=== PATIENT | female | born 1950 | race Two or more races ===

== ENCOUNTER 2020-02-18 10:10 | Emergency (ER) | payer OTHER ==
[~2020-02-18] VITALS: Ht 170.2 cm; Wt 83.8 kg
[2020-02-18] MEDS ORDERED: ASPI-986 PO (10:19)
[2020-02-18 10:30] LABS: BASOPHILS % 0.6 % (0.0-2.0); HEMATOCRIT. 39.8 % (36.0-48.0); HEMOGLOBIN. 13.4 g/dL (12.0-16.0); LYMPHOCYTES % 36.6 % (20.0-50.0); MEAN CORPUSCULAR VOLUME 92.1 fL (81.0-99.0); MEAN PLATELET VOLUME 8.4 fl (7.4-10.4); MONOCYTES % 8.2 % (2.0-8.0); NEUTROPHILS % 52.6 % (40.0-76.0); PLATELET 232 x1000/uL (130-400); RED BLOOD CELL COUNT 4.32 mill/uL (4.2-5.4); RED CELL DISTRIBUTION WIDTH 13.2 % (11.6-14.6)
[2020-02-18 10:38] LABS: CHLORIDE 106 mEq/L (98-107)
[2020-02-18 10:41] LABS: ETHANOL BLOOD < 10 mg/dL
[2020-02-18 10:44] LABS: LDL CHOLESTEROL 73 mg/dL (5-100)
[2020-02-18 10:45] LABS: PROTHROMBIN TIME 10.8 sec (9.6-11.0)
[2020-02-18 11:20] LABS: CLARITY URINE CLEAR (CLEAR); COLOR URINE YELLOW (YELLOW); KETONES URINE NEGATIVE (NEGATIVE); LEUKOCYTE ESTERASE URINE 1+ (NEGATIVE); NITRITE URINE NEGATIVE (NEGATIVE); OCCULT BLOOD URINE NEGATIVE (NEGATIVE); PROTEIN URINE 1+ (NEGATIVE); SPECIFIC GRAVITY URINE 1.014 (1.005-1.030)
[2020-02-18] MEDS ORDERED: POTASSIUM CHLORIDE 20MEQ TABLET SR PO ONE (13:45)
[2020-02-18] MEDS ORDERED: ASPIRIN 325MG EC TABLET PO ONE (13:45)
[2020-02-18 13:50] VITALS: BP 135/86
[2020-02-19 10:48] LABS: *AMPHETAMINES SCREEN URINE NEGATIVE (NEGATIVE); *BARBITURATES SCREEN URINE NEGATIVE (NEGATIVE); *BENZODIAZEPINES SCREEN URINE NEGATIVE (NEGATIVE); *COCAINE SCREEN URINE NEGATIVE (NEGATIVE); CANNABINOID URINE SCREEN NEGATIVE (NEGATIVE); PHENCYCLIDINE URINE SCREEN NEGATIVE (NEGATIVE)
[2020-02-19 10:49] LABS: METHADONE URINE SCREEN NEGATIVE (NEGATIVE); OPIATES URINE SCREEN NEGATIVE (NEGATIVE)
== END 2020-02-18 14:22 | disposition short-term general hospital (02) ==
LOC: ER 10:10 → EDBEDREQTM 10:46 → EDBEDREQ 10:46 → EDBEDREQSVC 10:46 → CANBEDREQ 14:16 → ER 14:22
DX: I63.9 Cerebral infarction, unspecified (principal); I10 Essential (primary) hypertension; Z86.73 Personal history of transient ischemic attack (TIA), and cerebral infarction without residual deficits
CPT/HCPCS: 36415; 71045; 80053; 80305; 80320; 81003; 82962; 83721; 84484; 85025; 93005; 99291; G0480

== ENCOUNTER 2020-02-19 18:42 | Emergency (ER) | payer OTHER ==
[~2020-02-19] VITALS: Ht 172.7 cm; Wt 80.6 kg
[~2020-02-19 18:42] MED LIST: ASPI-986 PO
[2020-02-19 19:41] LABS: BASOPHILS % 0.4 % (0.0-2.0); EOSINOPHILS % 1.2 % (0.0-5.0); HEMATOCRIT. 35.9 % (36.0-48.0); HEMOGLOBIN. 12.2 g/dL (12.0-16.0); LYMPHOCYTES % 30.3 % (20.0-50.0); MEAN CORPUSCULAR HEMOGLOBIN 31.6 pg (28.0-32.0); MEAN CORPUSCULAR VOLUME 92.6 fL (81.0-99.0); MEAN PLATELET VOLUME 8.2 fl (7.4-10.4); MONOCYTES % 8.6 % (2.0-8.0); NEUTROPHILS % 59.5 % (40.0-76.0); PLATELET 205 x1000/uL (130-400); RED BLOOD CELL COUNT 3.88 mill/uL (4.2-5.4); RED CELL DISTRIBUTION WIDTH 13.3 % (11.6-14.6)
[2020-02-19 19:50] LABS: CHLORIDE 106 mEq/L (98-107); PROTHROMBIN TIME 11.3 sec (9.6-11.0)
[2020-02-19 19:53] LABS: ETHANOL BLOOD < 10 mg/dL
[2020-02-19 19:56] LABS: LDL CHOLESTEROL 76 mg/dL (5-100)
[2020-02-19] MEDS ORDERED: IOHEXOL-350 100 ML BOTTLE ONE (20:29)
[2020-02-19] MEDS ORDERED: ASPIRIN 81MG TABLET PO ONE (20:45)
[2020-02-20 01:24] VITALS: BP 136/79
== END 2020-02-20 02:00 | disposition short-term general hospital (02) ==
LOC: ER 18:42 → CANBEDREQ 02-20 03:54
DX: I63.9 Cerebral infarction, unspecified (principal); R47.01 Aphasia; R20.0 Anesthesia of skin; I10 Essential (primary) hypertension; E78.5 Hyperlipidemia, unspecified; Z86.73 Personal history of transient ischemic attack (TIA), and cerebral infarction without residual deficits
CPT/HCPCS: 36415; 70450; 70496; 70498; 71045; 80053; 80320; 83721; 84484; 85025; 85610; 93005; 99291; Q9967; G0480